=== PATIENT | male | born 1945 | race Hispanic/Latino ===

== ENCOUNTER 2017-09-11 09:20 | Day surgery (SDC) | payer MEDICARE ==
[~2017-09-11 09:20] MED LIST: ANCEF/STERILE WATER 2 GM/20 ML IV NR
[2017-09-11] MEDS ORDERED: ANCEF/STERILE WATER 2 GM/20 ML IV NR (13:00)
[2017-09-11] MEDS ORDERED: ZOFRAN IV PRN (13:22)
[2017-09-11] MEDS ORDERED: DILAUDID IV PRN (13:22)
--- NOTE | 2017-09-11 13:25 | Anesthesia Consultation ---
Anesthesia Consult and Med Hx Date of service: 09/11/17 - Airway Anesthetic Teeth Evaluation: Poor, Bridges ROM Head & Neck: Adequate Mental/Hyoid Distance: Adequate Mallampati Class: Class II Intubation Access Assessment: Probably Good - Pulmonary Exam CTA: Yes - Cardiac Exam Cardiac Exam: No Murmur - Pre-Operative Health Status ASA Pre-Surgery Classification: ASA2 Proposed Anesthetic Plan: General - Pulmonary Hx Smoking: Yes (STOPPED 1969 , 1 PPD) Hx Sleep Apnea: No (TATIANNA PRE SCREEN HIGH RISK.) - Cardiovascular System Hx Hypertension: No (MEDS FOR HEART RATE) - Endocrine Hx Hypothyroidism: Yes (ON MEDS) - Other Systems Hx Cancer: Yes (SKIN CA NJKR-LPEYALI-ACYYSLV/RADIATION)
[2017-09-11] MEDS ORDERED: NACL 0.9% 1000 ML 1,000 ML IV SCH ×2 (14:00)
[2017-09-11] MEDS ORDERED: DIPRIVAN 10 MG/ML IV ONE (14:02)
[2017-09-11] MEDS ORDERED: DILAUDID ONE (14:04)
[2017-09-11] MEDS ORDERED: XYLOCAINE MPF 2% ONE (14:04)
[2017-09-11] MEDS ORDERED: ZOFRAN ONE (14:16)
[2017-09-11] MEDS ORDERED: DECADRON ONE (14:16)
[2017-09-11] MEDS ORDERED: ROBINUL ONE (14:29)
--- NOTE | 2017-09-11 14:37 | Short Stay Summary ---
Short Stay Documentation Date of service: 09/11/17 - History H&P: obtained from office - Allergies and Medications Current Medications: Allergies No Known Allergies Allergy (Verified 09/08/17 14:52) Home Medications Medication Instructions Recorded Confirmed Last Taken Type Atenolol [Tenormin] 100 mg PO DAILY 09/08/17 09/08/17 09/11/17 08:00 History AtorvaSTATin [Lipitor] 20 mg PO QHS 09/08/17 09/08/17 09/11/17 08:00 History Fenofibrate 160 mg PO DAILY 09/08/17 09/11/17 09/10/17 History Levothyroxine [Synthroid] 100 mcg PO QAM 09/08/17 09/08/17 09/11/17 08:00 History Tamsulosin [Flomax] 0.4 mg PO QDAY 09/11/17 09/11/17 09/10/17 History Active Medications Cefazolin Sodium (Ancef/Sterile Water 2 Gm/20 Ml) 2 gm IV PREOP NR Stop: 09/11/17 16:00 Hydromorphone HCl (Dilaudid) 0.25 mg IV Q10M PRN PRN Reason: Pain , Severe (7-10) Stop: 09/11/17 18:01 Sodium Chloride (Nacl 0.9% 1000 Ml) 1,000 mls @ 125 mls/hr IV DIRECT SCOTT Last Admin: 09/11/17 13:31 Dose: 125 mls/hr Sodium Chloride (Nacl 0.9% 1000 Ml) 1,000 mls @ 125 mls/hr IV DIRECT SCOTT Ondansetron HCl (Zofran) 4 mg IV ONCE PRN PRN Reason: Nausea And Vomiting Stop: 09/11/17 20:00 - Brief post op/procedure progress note Date of procedure: 09/11/17 Pre-op diagnosis: rigth uret 8mm Post-op diagnosis: same Procedure: rt ruet eswl Anesthesia: GETA Findings: good vis unable to vis at end Surgeon: LO DICK Estimated blood loss: none Pathology: none Condition: stable - Hospital course Hospital course: [facility] - Disposition Condition at discharge: Good Disposition: DC-01 TO HOME OR SELFCARE Short Stay Discharge Plan Diet: advance as tolerated Follow up with: LO DICK MD [Staff Physician] - 7 Days
--- NOTE | 2017-09-11 16:53 | XRay Report ---
KUB: 09/11/17 12:24:00 CLINICAL: Urinary stones. FINDINGS: A large volume of stool obscures portions of the kidneys. No definite renal calculi are identified. Phleboliths versus distal ureteral calculi. The bones are unremarkable. IMPRESSION: Pelvic phleboliths versus distal ureteral calculi.
[2017-09-11 18:49] VITALS: BP 144/80
--- NOTE | 2017-09-21 22:48 | Operative Report ---
PREOPERATIVE DIAGNOSIS: Right ureteral 8 mm stone. POSTOPERATIVE DIAGNOSIS: Right ureteral 8 mm stone. PROCEDURE: Right ureteral ESWL. ANESTHESIA: General. FINDINGS: Good visualization, unable to visualize the stone at the end of the procedure. SURGEON: Venkata Lucia M.D. ESTIMATED BLOOD LOSS: None. PATHOLOGY: None. CONDITION: Stable. CLINICAL INDICATIONS: Counseled by his primary urologist, questions are answered and reviewed before the procedure, antibiotics, SCD. DESCRIPTION OF PROCEDURE: The patient transferred to OR suite in supine position, anesthesia begun. Biplanar fluoroscopy was used to target the stone with an F2 in the right ureter at a maximum of 6.0 kilovolts. Intermittent repositioning done as necessary. At the end of the procedure, we could not visualize the stone at all and most likely had very good fragmentation. The patient was awakened and transferred to PACU in good and stable condition. JOB# [id number] ATS/NTS
== END 2017-09-11 16:50 | disposition home or self-care (01) ==
LOC: OR 09:20
PROVIDERS: ATTEND Urology
DX: N13.2 Hydronephrosis with renal and ureteral calculous obstruction (principal); I10 Essential (primary) hypertension; E03.9 Hypothyroidism, unspecified; Z87.891 Personal history of nicotine dependence; Z85.828 Personal history of other malignant neoplasm of skin
CPT/HCPCS: 50590; 74018; J0690; J1100; J1170; J2405; J2704; J7030